=== PATIENT | female | born 1990 | race Caucasian/White ===

== ENCOUNTER 2017-06-08 12:24 | Emergency (ER) | payer BC ==
--- NOTE | 2017-06-08 13:08 | UC ---
Throat Pain/Nasal Santi HPI - HPI Summary HPI Summary: 27 y/o female presents to the urgent care c/o sore throat since yesterday. Pt reports chills, has not taken her temp. But has been taking Ibuprofen 800mg PO to alleviate symptoms, last dose was at 1100 am. Pain with swallowing is 9/10. Mild B/L ear pain and pressure. Pt denies cough, SOB, chest pain, abdominal pain , N/V/D. She has Hx of strep. - History of Current Complaint Stated Complaint: SORE THROAT CONGESTION Time Seen by Provider: 06/08/17 13:05 Hx Obtained From: Patient Hx Last Menstrual Period: 03/11/14 ?: No Onset/Duration: Gradual Onset, Lasting Days - 1 day, Worse Since - this morning Severity: Severe Pain Intensity: 9 Pain Scale Used: 0-10 Numeric Cough: None Associated Signs & Symptoms: Positive: Dysphagia, Fever - Epiglottits Risk Factors Epiglottis Risk Factors: Negative - Allergies/Home Medications Allergies/Adverse Reactions: Allergies Allergy/AdvReac Type Severity Reaction Status Date / Time Amoxicillin [From Augmentin] Allergy Hives Verified 06/08/17 13:14 Clavulanic Acid Allergy Hives Verified 06/08/17 13:14 [From Augmentin] Penicillins Allergy Hives Verified 06/08/17 13:14 Home Medications: Home Medications Etonogestrel [Nexplanon] 1 imp ONCE 06/08/17 [History Confirmed 06/08/17] PMH/Surg Hx/FS Hx/Imm Hx Previously Healthy: Yes - Pt denies PMHX - Surgical History Surgical History: None - Family History Known Family History: Positive: None - Pt denies FMHX - Social History Occupation: Employed Full-time Lives: With Family Alcohol Use: Rare Substance Use Type: None Smoking Status (MU): Never Smoked Tobacco Review of Systems Constitutional: Fever - subjective at home, Chills Skin: Negative Eyes: Negative ENT: Sore Throat, Ear Ache - B/L ear pain and pressure Respiratory: Negative Cardiovascular: Negative Gastrointestinal: Negative Genitourinary: Negative Motor: Negative Neurovascular: Negative Musculoskeletal: Negative Neurological: Negative Psychological: Negative Is Patient Immunocompromised?: No All Other Systems Reviewed And Are Negative: Yes Physical Exam Triage Information Reviewed: Yes - Additional Comments VITAL SIGNS: Reviewed. GENERAL: Patient is a well developed and nourished female who is sitting comfortable in the examining table. Patient is not in any acute respiratory distress. HEAD AND FACE: No signs of trauma. No ecchymosis, hematomas or skull depressions. No sinus tenderness. EYES: PERRLA, EOMI x 2, No injected conjunctiva, no nystagmus. No photophobia. EARS: Hearing grossly intact. Ear canals and tympanic membranes are within normal limits. MOUTH: Positive pharynx with erythema, exudates, palatal petechiae. B/L tonsillar enlargement with exudate. Uvula in midline. NECK: Supple, trachea is midline, Positive anterior cervical lymphadenopathy, no JVD, no carotid bruit, no c-spine tenderness, neck with full ROM. No meningeal signs, no Kernig's or brudzinskis signs. CHEST: Symmetric, no tenderness at palpation LUNGS: Clear to auscultation bilaterally. No wheezing or crackles. CVS: Regular rate and rhythm, S1 and S2 present, no murmurs or gallops appreciated. ABDOMEN: Soft, non-tender. No signs of distention. No rebound no guarding, and no masses palpated. Bowel sounds are normal. EXTREMITIES: FROM in all major joints, no edema, no cyanosis or clubbing. NEURO: Alert and oriented x 3. No acute neurological deficits. Speech is normal and follows commands. SKIN: Dry and warm Throat Pain/Nasal Course/Dx - Course Course Of Treatment: 27 y/o female presents to the urgent care c/o sore throat since yesterday. Pt reports chills, has not taken her temp. But has been taking Ibuprofen 800mg PO to alleviate symptoms, last dose was at 1100 am. Pain with swallowing is 9/10. Mild B/L ear pain and pressure. Pt denies cough, SOB, chest pain, abdominal pain, N/V/D. She has Hx of strep. Pt with a pharyngitis on examination. Rapid strep ordered: result: positive. Strep pharyngitis. Pt given Viscous lidocaine to do gargles to alleviate pain. Pt PCN allergic. Rx Z- salty PO and Ibuprofen PO for pain and swelling. PT Advised on hand washing to avoid spreading. Also advised to rest, eat well and avoid strenuous exercise. If symptoms do not improve or worsen advised to return to the urgent care or f/ u with her PCP for further evaluation and treatment. PT understood and agreed - Differential Dx/Diagnosis Differential Diagnosis/HQI/PQRI: Laryngitis, Mononucleosis, Peritonsillar Abscess, Pharyngitis, Tonsillitis, URI Provider Diagnoses: 1- Strep pharyngitis Discharge - Discharge Plan Condition: Stable Disposition: HOME Prescriptions: Azithromyxin SALTY (NF) [Z-Salty (Zithromax) 250 mg tabs #6] 2 tab PO .TODAY, THEN 1 DAILY #6 tab Ibuprofen TAB* [Motrin TAB* 800 MG] 800 mg PO Q6H PRN #20 tab PRN Reason: Pain Patient Education Materials: Strep Throat (ED) Referrals: Alisson Villanueva [Primary Care Provider] - 2 Days Additional Instructions: 1- Please take the full course of the antibiotic to avoid resistance. 2-Please take ibuprofen PO q6-8hrs prn as instructed after meals to alleviate pain and swelling. Increase fluid intake, eat well, rest and avoid strenuous exercise 3-If symptoms do not improve or worsen please return to the urgent care or f/u with your PCP in 2 days for further evaluation and treatment.
[2017-06-08 13:18] VITALS: BP 125/71
[2017-06-08] MEDS ORDERED: Lidocaine 2% VISCOUS* 15 ML UDC SWISH SPIT ONE (13:28)
== END 2017-06-08 13:42 | disposition home or self-care (01) ==
LOC: UCCORT 12:24
DX: J02.0 Streptococcal pharyngitis (principal); H92.03 Otalgia, bilateral; Z88.1 Allergy status to other antibiotic agents; Z88.0 Allergy status to penicillin
CPT/HCPCS: 87651; 99202; G0463